=== PATIENT | female | born 1950 | race Caucasian/White ===

== ENCOUNTER 2017-02-24 15:32 | Outpatient (CLI) | payer OTHER | END 2017-02-24 15:33 | disposition home or self-care (01) | LOC: AMBL 15:32 | PROVIDERS: ATTEND Emergency Medicine | DX: R53.1 Weakness (principal); E66.9 Obesity, unspecified ==

== ENCOUNTER 2017-03-15 01:18 | Outpatient (CLI) | payer OTHER | END 2017-03-15 01:19 | disposition home or self-care (01) | LOC: AMBL 01:18 | PROVIDERS: ATTEND Emergency Medicine | DX: T14.90 Injury, unspecified (principal); W01.0XXA Fall on same level from slipping, tripping and stumbling without subsequent striking against object, initial encounter; Z91.81 History of falling; Y92.002 Bathroom of unspecified non-institutional (private) residence as the place of occurrence of the external cause; M19.90 Unspecified osteoarthritis, unspecified site ==

== ENCOUNTER 2017-11-14 12:46 | Outpatient (CLI) | END 2017-11-14 12:47 | disposition left against medical advice (07) | LOC: AMBL 12:46 | PROVIDERS: ATTEND Emergency Medicine | DX: Z04.3 Encounter for examination and observation following other accident (principal); W19.XXXA Unspecified fall, initial encounter ==

== ENCOUNTER 2017-11-20 13:34 | Outpatient (CLI) | END 2017-11-20 13:35 | disposition left against medical advice (07) | LOC: AMBL 13:34 | PROVIDERS: ATTEND Internal Medicine | DX: Z74.2 Need for assistance at home and no other household member able to render care (principal); W19.XXXA Unspecified fall, initial encounter ==

== ENCOUNTER 2018-01-01 07:18 | Outpatient (CLI) | payer OTHER | END 2018-01-01 07:19 | disposition left against medical advice (07) | LOC: AMBL 07:18 | PROVIDERS: ATTEND Internal Medicine | DX: E16.2 Hypoglycemia, unspecified (principal) ==

== ENCOUNTER 2018-01-13 13:58 | Outpatient (CLI) | payer OTHER | END 2018-01-13 13:59 | disposition short-term general hospital (02) | LOC: AMBL 13:58 | PROVIDERS: ATTEND Internal Medicine | DX: R06.02 Shortness of breath (principal); R60.0 Localized edema; E11.9 Type 2 diabetes mellitus without complications; J44.9 Chronic obstructive pulmonary disease, unspecified; I50.9 Heart failure, unspecified ==

== ENCOUNTER 2018-02-02 13:34 | Outpatient (CLI) | END 2018-02-02 13:35 | disposition short-term general hospital (02) | LOC: AMBL 13:34 | PROVIDERS: ATTEND Emergency Medicine | DX: S39.92XA Unspecified injury of lower back, initial encounter (principal); W06.XXXA Fall from bed, initial encounter ==

== ENCOUNTER 2018-02-22 19:57 | Outpatient (CLI) | END 2018-02-22 19:58 | disposition short-term general hospital (02) | LOC: AMBL 19:57 | PROVIDERS: ATTEND Internal Medicine | DX: R06.02 Shortness of breath (principal); R60.0 Localized edema; Z99.81 Dependence on supplemental oxygen ==

== ENCOUNTER 2018-02-28 18:14 | Outpatient (CLI) | END 2018-02-28 18:15 | disposition left against medical advice (07) | LOC: AMBL 18:14 | PROVIDERS: ATTEND Family Medicine | DX: Z74.2 Need for assistance at home and no other household member able to render care (principal); W19.XXXA Unspecified fall, initial encounter ==

== ENCOUNTER 2018-03-03 17:23 | Outpatient (CLI) | payer OTHER | END 2018-03-03 17:24 | disposition left against medical advice (07) | LOC: AMBL 17:23 | PROVIDERS: ATTEND Internal Medicine | DX: Z74.2 Need for assistance at home and no other household member able to render care (principal) ==

== ENCOUNTER 2018-03-04 07:44 | Outpatient (CLI) | END 2018-03-04 07:45 | disposition left against medical advice (07) | LOC: AMBL 07:44 | PROVIDERS: ATTEND Emergency Medicine | DX: Z74.2 Need for assistance at home and no other household member able to render care (principal); W19.XXXA Unspecified fall, initial encounter ==

== ENCOUNTER 2018-03-09 19:14 | Outpatient (CLI) | payer OTHER | END 2018-03-09 19:27 | disposition short-term general hospital (02) | LOC: AMBL 19:14 | PROVIDERS: ATTEND Internal Medicine Geriatric Medicine | DX: R73.9 Hyperglycemia, unspecified (principal); R53.1 Weakness ==

== ENCOUNTER 2018-03-26 03:48 | Outpatient (CLI) | END 2018-03-26 04:02 | disposition short-term general hospital (02) | LOC: AMBL 03:48 | PROVIDERS: ATTEND Family Medicine | DX: S99.922A Unspecified injury of left foot, initial encounter (principal) ==

== ENCOUNTER 2018-03-27 14:37 | Outpatient (CLI) | END 2018-03-27 14:53 | disposition short-term general hospital (02) | LOC: AMBL 14:37 | PROVIDERS: ATTEND Emergency Medicine | DX: R53.1 Weakness (principal); M79.672 Pain in left foot; S90.32XA Contusion of left foot, initial encounter; M79.89 Other specified soft tissue disorders; W18.00XA Striking against unspecified object with subsequent fall, initial encounter ==

== ENCOUNTER 2018-05-25 10:26 | Outpatient (CLI) | END 2018-05-25 10:27 | disposition home or self-care (01) | LOC: AMBL 10:26 | PROVIDERS: ATTEND Emergency Medicine | DX: R06.02 Shortness of breath (principal); R55 Syncope and collapse; R53.1 Weakness ==

== ENCOUNTER 2018-05-28 17:57 | Outpatient (CLI) | END 2018-05-28 18:14 | LOC: AMBL 17:57 | PROVIDERS: ATTEND Internal Medicine | DX: Z99.81 Dependence on supplemental oxygen (principal); Z74.01 Bed confinement status; D64.9 Anemia, unspecified; M54.9 Dorsalgia, unspecified; G89.29 Other chronic pain; Z89.512 Acquired absence of left leg below knee ==